=== PATIENT | female | born 1985 | race Two or more races ===

== ENCOUNTER 2021-08-13 17:11 | Emergency (ER) | payer OTHER ==
[~2021-08-13] VITALS: Ht 165.1 cm; Wt 77.1 kg
[2021-08-13 17:31] VITALS: BP 128/63
[2021-08-13] MEDS ORDERED: CLINDAMYCIN 900MG IV 50 ML IV ONE (22:00)
== END 2021-08-13 22:48 | disposition home or self-care (01) ==
LOC: ER 17:11
DX: K02.9 Dental caries, unspecified (principal); J45.909 Unspecified asthma, uncomplicated; Z88.1 Allergy status to other antibiotic agents
CPT/HCPCS: 70450; 70486; 96365; 99285; J3490